=== PATIENT | female | born 1945 | race Caucasian/White ===

== ENCOUNTER 2021-11-30 19:32 | Emergency (ER) | payer MEDICARE, SELFPAY ==
[2021-11-30 19:44] VITALS: BP 110/84; PULSE 128; RESP 14; TEMP 36.9; O2SAT 99
[2021-11-30 19:58] VITALS: BP 110/84; PULSE 128; RESP 14; TEMP 36.9; O2SAT 99
--- NOTE | 2021-11-30 20:13 | ED.ANIMALBIT ---
HPI - Animal Bite General Chief Complaint: Animal Bite Stated Complaint: Dog bite on right arm Time Seen by Provider: 11/30/21 19:57 Source: patient and RN notes reviewed Mode of arrival: ambulatory Limitations: no limitations History of Present Illness HPI narrative: Patient presents today complaining of a dog bite to her right forearm that was sustained at 1800. This was not her dog. Electrical Development Engineer states patient was up-to-date on vaccines, but could not provide documentation. Patient sustained several wounds to her arm. She is not up-to-date on her tetanus vaccine, but declines it today. She did clean the wound prior to arrival. MD complaint: animal bite Related Data Home Medications Medication Instructions Recorded Confirmed amlodipine 10 mg PO DAILY 11/30/21 11/30/21 aspirin [Adult Low Dose Aspirin] 81 mg PO DAILY 11/30/21 11/30/21 atorvastatin 10 mg PO DAILY 11/30/21 11/30/21 irbesartan-hydrochlorothiazide 1 tablet PO DAILY 11/30/21 11/30/21 omeprazole 40 mg PO DAILY 11/30/21 11/30/21 Allergies Allergy/AdvReac Type Severity Reaction Status Date / Time amoxicillin [From Augmentin] AdvReac Nausea and Verified 11/30/21 19:56 Vomiting clavulanic acid AdvReac Nausea and Verified 11/30/21 19:56 [From Augmentin] Vomiting Review of Systems Review of Systems: CONSTITUTIONAL: Denies body aches, fever, chills, or sweats. EYES: Denies visual changes, redness, or discharge. ENT: Denies rhinorrhea, congestion, sore throat, or otalgia. CARDIOVASCULAR: Denies chest pain, palpitations, or edema. RESPIRATORY: Denies cough or dyspnea. GASTROINTESTINAL: Denies abdominal pain, nausea, vomiting, or diarrhea. GENITOURINARY: Denies dysuria or hematuria. SKIN: Denies rash, itching. + Dog bite MUSCULOSKELETAL: Denies back pain, joint pain, or myalgia. NEUROLOGIC: Denies headache, numbness, tingling, or weakness. PSYCH: Denies depression or anxiety. [facility] Past Medical History Medical History (Updated 11/30/21 @ 20:20 by Piper Francois, DIALYSIS CLINICAL MANAGER, ) GERD (gastroesophageal reflux disease) High cholesterol Hypertension Comments At time of signature, I have reviewed and agree with nursing past medical, surgical, social and family history unless otherwise noted. Please see nursing chart for further information. There is no relevant family history pertinent to the presenting complaint Exam Narrative: GENERAL: Well-appearing, well-nourished, and in no acute distress. HEAD: Normocephalic, atraumatic. EYES: EOMI. No redness or drainage. Conjunctivae normal. ENT: Mucous membranes pink and moist. NECK: Normal AROM. CHEST: No respiratory distress. EXTREMITIES: Normal range of motion. No edema. SKIN: Warm, dry, no rash. Capillary refill normal. Normal skin turgor. Right forearm: 2.5 cm x 2.5 cm area with full skin avulsion of the superficial skin layers to the dorsum of the wrist. V shaped flap laceration measuring 0.5 cm to the proximal forearm, tiny superficial flap skin tear to the dorsum of the base of the fourth finger, tiny superficial puncture wound to the distal ulna. NEURO: No focal deficits. Alert and oriented x3. Gait steady. PSYCH: Normal affect. No signs of depression or anxiety. Course Course Emergency Course: Declines tetanus vaccine at this time. Level of Care: [facility] Visit Vital Signs Vital signs: Vital Signs Temperature 98.4 F 11/30/21 19:44 Pulse Rate 128 H 11/30/21 19:44 Respiratory Rate 14 11/30/21 19:44 Blood Pressure 110/84 11/30/21 19:44 Pulse Oximetry 99 11/30/21 19:44 Temperature 98.4 F 11/30/21 19:58 Pulse Rate 128 H 11/30/21 19:58 Respiratory Rate 14 11/30/21 19:58 Blood Pressure 110/84 11/30/21 19:58 Pulse Oximetry 99 11/30/21 19:58 Reviewed. Pt has been instructed to follow up with her PCP regarding her elevated blood pressure today. Procedures Laceration Laceration 1: Date: 11/30/21 Time: 20:10 Site: upper extremity (Rig
== END 2021-11-30 20:21 | disposition home or self-care (01) ==
PROVIDERS: Emergency Provider Nurse Practitioner
DX: S61.551A Open bite of right wrist, initial encounter (principal); S51.811A Laceration without foreign body of right forearm, initial encounter; S61.214A Laceration without foreign body of right ring finger without damage to nail, initial encounter; S51.831A Puncture wound without foreign body of right forearm, initial encounter; W54.0XXA Bitten by dog, initial encounter; I10 Essential (primary) hypertension; K21.9 Gastro-esophageal reflux disease without esophagitis; E78.00 Pure hypercholesterolemia, unspecified
CPT/HCPCS: 99212; G0463

== ENCOUNTER 2021-12-03 14:34 | Emergency (ER) | payer MEDICARE, SELFPAY ==
[2021-12-03 14:42] VITALS: BP 135/57; PULSE 78; RESP 14; TEMP 37; O2SAT 100
--- NOTE | 2021-12-03 14:44 | ED.GENADULT ---
HPI - General Adult General Chief complaint: Animal Bite Stated complaint: Dog Bite Time Seen by Provider: 12/03/21 14:48 Source: patient Mode of arrival: ambulatory Limitations: no limitations History of Present Illness HPI narrative: 76 y/o female presented for Tetanus vaccination after sustaining dog bite 72 hours ago. States she declined the shot when she was seen in the [facility] the day of injury. No complaints. Related Data Home Medications Medication Instructions Recorded Confirmed amlodipine 10 mg PO DAILY 11/30/21 12/03/21 aspirin [Adult Low Dose Aspirin] 81 mg PO DAILY 11/30/21 12/03/21 atorvastatin 10 mg PO DAILY 11/30/21 12/03/21 irbesartan-hydrochlorothiazide 1 tablet PO DAILY 11/30/21 12/03/21 omeprazole 40 mg PO DAILY 11/30/21 12/03/21 Allergies Allergy/AdvReac Type Severity Reaction Status Date / Time amoxicillin [From Augmentin] AdvReac Nausea and Verified 11/30/21 19:56 Vomiting clavulanic acid AdvReac Nausea and Verified 11/30/21 19:56 [From Augmentin] Vomiting Review of Systems Review of Systems: CONSTITUTIONAL: Denies body aches, fever, chills, or sweats. EYES: Denies visual changes, redness, or discharge. ENT: Denies rhinorrhea, congestion, sore throat, or otalgia. CARDIOVASCULAR: Denies chest pain, palpitations, or edema. RESPIRATORY: Denies cough or dyspnea. GASTROINTESTINAL: Denies abdominal pain, nausea, vomiting, or diarrhea. GENITOURINARY: Denies dysuria or hematuria. SKIN: Denies rash, itching MUSCULOSKELETAL: Denies back pain, joint pain, or myalgia. NEUROLOGIC: Denies headache, numbness, tingling, or weakness. PSYCH: Denies depression or anxiety. All systems reviewed & are unremarkable except as noted in HPI and below [facility] Past Medical History Medical History (Updated 12/03/21 @ 14:54 by Chandrika Broussard APRN) GERD (gastroesophageal reflux disease) High cholesterol Hypertension Comments At time of signature, I have reviewed and agree with nursing past medical, surgical, social and family history unless otherwise noted. Please see nursing chart for further information. There is no relevant family history pertinent to the presenting complaint Exam Narrative: GENERAL: Well-appearing HEAD: Normocephalic, atraumatic. EYES: EOMI. ENT: Mucous membranes pink and moist. NECK: Normal AROM. Supple. CHEST: No respiratory distress. Clear to auscultation. HEART: Regular rate and rhythm. No murmur appreciated. Normal peripheral pulses. ABDOMEN: Soft, nontender, nondistended, normal active bowel sounds. MUSCULOSKELETAL: No bony tenderness. EXTREMITIES: Normal range of motion. No edema. SKIN: Dog bite site to right upper forearm V-shaped flap with steri strip in place; right dorsal wrist with avulsion, no s/s infection. Warm, dry, no rash. Capillary refill normal. Normal skin turgor. NEURO: No focal deficits. Alert and oriented x3. Gait steady. PSYCH: Normal affect. No signs of depression or anxiety. Course Course Emergency Course: Patient is aware of diagnosis, understands and agrees to treatment plan. Anticipatory guidance given. Patient agrees to follow-up as directed and is aware of reasons to seek care at the emergency department. Portions of this record may have been created with voice recognition software Level of Care: [facility] Visit Vital Signs Vital signs: Vital Signs Temperature 98.6 F 12/03/21 14:42 Pulse Rate 78 12/03/21 14:42 Respiratory Rate 14 12/03/21 14:42 Blood Pressure 135/57 L 12/03/21 14:42 Pulse Oximetry 100 12/03/21 14:42 Temperature 98.6 F 12/03/21 14:42 Pulse Rate 78 12/03/21 14:42 Respiratory Rate 14 12/03/21 14:42 Blood Pressure 135/57 L 12/03/21 14:42 Pulse Oximetry 100 12/03/21 14:42 Medical Decision Making [facility] Narrative Medical decision making narrative: Pt presented only for tetanus after dog bite 3 days ago. Dressing to right dorsal wrist removed, skin avulsion site appears h
[2021-12-03] MEDS: TETANUS,DIPHTHERIA,AC PERTUSSIS ADULT (0.5 ML) BOOSTRIX IM (14:55)
== END 2021-12-03 15:04 | disposition home or self-care (01) ==
PROVIDERS: Emergency Provider Nurse Practitioner Family
DX: Z23 Encounter for immunization (principal); K21.9 Gastro-esophageal reflux disease without esophagitis; E78.00 Pure hypercholesterolemia, unspecified; I10 Essential (primary) hypertension
CPT/HCPCS: 90471; 90715; 99212; G0463

== ENCOUNTER 2022-10-01 11:37 | Emergency (ER) | payer MEDICARE, SELFPAY ==
[2022-10-01 11:45] VITALS: BP 135/61; PULSE 85; RESP 14; TEMP 36.7; O2SAT 100
[2022-10-01 11:58] VITALS: BP 135/61; PULSE 85; RESP 14; TEMP 36.7; O2SAT 100
--- NOTE | 2022-10-01 12:02 | ED.WOUNDLAC ---
HPI - Wound/Laceration General Chief Complaint: Wound/Laceration Stated Complaint: Scratch to right ankle; swelling to foot Time Seen by Provider: 10/01/22 11:56 Source: patient and RN notes reviewed Mode of arrival: ambulatory Limitations: dementia History of Present Illness HPI narrative: 76-year-old female presents concern for redness, swelling, tenderness, scabs to her right ankle. She is not sure how she got the scabs, she may have scratched the ankle in her sleep. She reports the area has become more red, swollen. Reports swelling is moving to her foot. Related Data Home Medications Medication Instructions Recorded Confirmed amlodipine 10 mg tablet 10 mg PO DAILY 11/30/21 10/01/22 atorvastatin 10 mg tablet 10 mg PO DAILY 11/30/21 10/01/22 irbesartan 300 1 tablet PO DAILY 11/30/21 10/01/22 mg-hydrochlorothiazide 12.5 mg tablet omeprazole 40 mg capsule,delayed 40 mg PO DAILY 11/30/21 10/01/22 release latanoprost 0.005 % eye drops, 1 drp EACH EYE QPM 10/01/22 10/01/22 emulsion Allergies Allergy/AdvReac Type Severity Reaction Status Date / Time amoxicillin [From Augmentin] AdvReac Nausea and Verified 10/01/22 11:57 Vomiting clavulanic acid AdvReac Nausea and Verified 10/01/22 11:57 [From Augmentin] Vomiting MYCINS Allergy Unknown Uncoded 10/01/22 11:57 Review of Systems Review of Systems: CONSTITUTIONAL: Denies malaise, chills, sweats, or fever. EYES: Denies redness, or discharge. ENT: Denies rhinorrhea, congestion, swollen lips, swollen tongue CARDIOVASCULAR: Denies chest pain, palpitations, or edema. RESPIRATORY: Denies cough or dyspnea. GASTROINTESTINAL: Denies abdominal pain, nausea, vomiting SKIN: Reports redness, swelling, tenderness with scabbing to the right ankle. Denies purulent drainage, vesicles, bullae, numbness, pain beyond proportion MUSCULOSKELETAL: Denies joint pain or myalgia. NEUROLOGIC: Denies headache. All systems reviewed & are unremarkable except as noted in HPI and below PMFSH Past Medical History Medical History (Updated 10/01/22 @ 12:04 by Mirian Paez NP) GERD (gastroesophageal reflux disease) High cholesterol Hypertension Comments At time of signature, agree with nursing past medical, surgical, social and family history. There is no relevant family history pertinent to the presenting complaint Exam Narrative: GENERAL: Well-appearing, well-nourished, and in no acute distress. HEAD: Normocephalic, atraumatic. EYES: PERRLA, conjunctivae clear ENT: Mucous membranes moist. NECK: Supple. No lymphadenopathy CHEST: Clear to auscultation. No respiratory distress. HEART: Regular rate and rhythm. SKIN: Warm, dry. Scabs surrounded by mild Erythema, induration, tenderness, warmth with sharp margins noted right posterior ankle entire area approximately 7 cm x 4 cm. No vesicles, bullae, necrosis, ecchymosis, crepitus noted. NEURO: Alert and oriented x3. PSYCH: Normal mood and affect Course Course Emergency Course: Patient is aware of diagnosis, understands and agrees to treatment plan. Anticipatory guidance given. Patient agrees to follow-up as directed and is aware of reasons to seek care at the emergency department. Portions of this record may have been created with voice recognition software Level of Care: [facility] Visit Vital Signs Vital signs: Vital Signs Temperature 98.1 F 10/01/22 11:45 Pulse Rate 85 10/01/22 11:45 Respiratory Rate 14 10/01/22 11:45 Blood Pressure 135/61 10/01/22 11:45 Pulse Oximetry 100 10/01/22 11:45 Oxygen Delivery Room Air 10/01/22 11:45 Temperature 98.1 F 10/01/22 11:58 Pulse Rate 85 10/01/22 11:58 Respiratory Rate 14 10/01/22 11:58 Blood Pressure 135/61 10/01/22 11:58 Pulse Oximetry 100 10/01/22 11:58 Oxygen Delivery Room Air 10/01/22 11:58 Reviewed. MDM - Wound/Laceration MDM Narrative Medical decision making narrative: Does not appear at this time to be eryt
== END 2022-10-01 12:15 | disposition home or self-care (01) ==
PROVIDERS: Emergency Provider Nurse Practitioner
DX: L03.115 Cellulitis of right lower limb (principal); K21.9 Gastro-esophageal reflux disease without esophagitis; E78.00 Pure hypercholesterolemia, unspecified; I10 Essential (primary) hypertension
CPT/HCPCS: 99213; G0463

== ENCOUNTER 2023-09-01 09:45 | Emergency (ER) | payer MEDICARE, SELFPAY ==
[2023-09-01 09:51] VITALS: BP 131/64; PULSE 94; RESP 16; TEMP 36.6; O2SAT 96
--- NOTE | 2023-09-01 09:52 | ED.URI ---
HPI - URI/Sore Throat General Chief Complaint: Upper Respiratory Infection Stated Complaint: cough/cold Time Seen by Provider: 09/01/23 10:00 Source: patient Mode of arrival: ambulatory Limitations: no limitations History of Present Illness HPI Narrative: Patient is a 77-year-old female who presents with 1 week of dry cough. Worsening at night. Also reports mild congestion and sore throat from cough. Denies any fever, chills, nausea, vomiting, diarrhea. Reports family has had bronchitis in strep throat. Related Data Home Medications Medication Instructions Recorded Confirmed amlodipine 10 mg tablet 10 mg PO DAILY 11/30/21 10/01/22 atorvastatin 10 mg tablet 10 mg PO DAILY 11/30/21 10/01/22 irbesartan 300 1 tablet PO DAILY 11/30/21 10/01/22 mg-hydrochlorothiazide 12.5 mg tablet omeprazole 40 mg capsule,delayed 40 mg PO DAILY 11/30/21 10/01/22 release latanoprost 0.005 % eye drops, 1 drp EACH EYE QPM 10/01/22 10/01/22 emulsion Allergies Allergy/AdvReac Type Severity Reaction Status Date / Time amoxicillin [From Augmentin] AdvReac Nausea and Verified 09/01/23 09:56 Vomiting clavulanic acid AdvReac Nausea and Verified 09/01/23 09:56 [From Augmentin] Vomiting MYCINS Allergy Unknown Uncoded 09/01/23 09:56 Review of Systems Review of Systems: All systems reviewed & are unremarkable except as noted in HPI and below Constitutional: Constitutional: Denies body ache(s), Denies chills, Denies fatigue, Denies fever(s), Denies headache(s), Denies malaise and Denies weakness Eyes: Eyes: Denies blurry vision, Denies itchy eyes and Denies loss of vision ENT: Denies otalgia, Denies headache(s), Reports nasal congestion, Denies sinus pain and Reports sore throat Cardiovascular: Cardiovascular: Denies chest pain, Denies irregular heart rhythm and Denies dyspnea Respiratory: Respiratory: Reports cough and Denies dyspnea Gastrointestinal: Gastrointestinal: Denies abdominal pain, Denies diarrhea, Denies nausea and Denies vomiting Musculoskeletal: Musculoskeletal: Denies back pain, Denies myalgias and Denies arthralgias Integumentary/Breasts: Skin/Breast: Denies pruritus and Denies rash Neurologic: Denies headache(s), Denies loss of vision and Denies weakness Psychiatric: Psychiatric: Reports no additional psychiatric complaints Endocrine: Endocrine: Denies fatigue Allergic/Immunologic: Allergic/Immunologic: Denies itchy eyes PMFSH Past Medical History Medical History GERD (gastroesophageal reflux disease) High cholesterol Hypertension Comments At time of signature, agree with nursing past medical, surgical, social and family history. There is no relevant family history pertinent to the presenting complaint. Exam Const: General: cooperative, healthy appearing, comfortable, no acute distress and well nourished Nutritional Appearance: well nourished Orientation/consciousness: patient oriented x3 Limitations: no limitations HENMT: Head: normal to inspection, normocephalic and atraumatic Ears: hearing grossly normal bilaterally, external ears normal, TM's normal bilaterally, EAC's normal and no periauricular adenopathy Face/Nose/Sinus: Normal external nose present, Abnormal mucous membranes and turbinates present erythematous bilateral and diffuse, normal facial exam, sinuses nontender and face symmetric Face and sinus: normal facial exam, sinuses nontender and face symmetric Mouth: Yes Normal oral and palatal mucosa present, Yes lip normal, Yes tongue normal, Yes Normal salivary glands and ducts present, Yes oropharynx normal and Yes moist mucous membranes Teeth and gingiva: dentition normal Throat: posterior oropharynx normal, tonsils normal and uvula midline Eyes: General: appearance normal, both eyes and all related structures Alignment and Position: alignment normal and position normal Periorbital: periorbital findings normal Eyelids: e
[2023-09-01 09:58] VITALS: BP 131/64; PULSE 94; RESP 16; TEMP 36.6; O2SAT 96
== END 2023-09-01 10:31 | disposition home or self-care (01) ==
PROVIDERS: Emergency Provider Nurse Practitioner Family; PCP Internal Medicine
DX: J06.9 Acute upper respiratory infection, unspecified (principal); I10 Essential (primary) hypertension
CPT/HCPCS: 99213; G0463

== ENCOUNTER 2023-12-16 09:39 | Emergency (ER) | payer MEDICARE, SELFPAY ==
--- NOTE | 2023-12-16 09:44 | ED.FEMALEGU ---
HPI - Female Genitourinary General Chief complaint: Urogenital-Female Stated complaint: Urinary Problem Time Seen by Provider: 12/16/23 10:17 Source: patient, RN notes reviewed and old records reviewed Mode of arrival: ambulatory Limitations: no limitations History of Present Illness HPI Narrative: 78-year-old female presents to the [facility] with complaints of urinary symptoms. Patient reports that for 1 week she has had burning, urgency and frequency. Patient reports history UTIs. Last UTI was April of 2023 Patient denies any fevers, nausea, vomiting, diarrhea, abdominal pain. Denies back pain Onset (ago): week(s) (1) Related Data Home Medications Medication Instructions Recorded Confirmed amlodipine 10 mg tablet 10 mg PO DAILY 11/30/21 12/16/23 atorvastatin 10 mg tablet 10 mg PO DAILY 11/30/21 12/16/23 irbesartan 300 1 tablet PO DAILY 11/30/21 12/16/23 mg-hydrochlorothiazide 12.5 mg tablet omeprazole 40 mg capsule,delayed 40 mg PO DAILY 11/30/21 12/16/23 release latanoprost 0.005 % eye drops, 1 drp EACH EYE QPM 10/01/22 12/16/23 emulsion Allergies Allergy/AdvReac Type Severity Reaction Status Date / Time amoxicillin [From Augmentin] AdvReac Nausea and Verified 12/16/23 09:57 Vomiting clavulanic acid AdvReac Nausea and Verified 12/16/23 09:57 [From Augmentin] Vomiting MYCINS Allergy Unknown Uncoded 09/01/23 09:56 Review of Systems Review of Systems: All systems reviewed & are unremarkable except as noted in HPI and below Constitutional: Constitutional: Reports no additional constitutional complaints Eyes: Eyes: Reports no additional eye complaints ENT: Reports system reviewed and no additional complaints, except as documented Cardiovascular: Cardiovascular: Reports no additional cardiovascular complaints, Denies chest pain and Denies dyspnea Respiratory: Respiratory: Reports no additional respiratory complaints, Denies chest congestion, Denies cough and Denies dyspnea Gastrointestinal: Gastrointestinal: Denies abdominal pain, Denies nausea and Denies vomiting Genitourinary: Genitourinary: Reports as per HPI and Reports dysuria Musculoskeletal: Musculoskeletal: Reports no additional musculoskeletal complaints Integumentary/Breasts: Skin/Breast: Reports system reviewed and no additional complaints, except as docu Neurologic: Reports system reviewed and no additional complaints, except as documented Psychiatric: Psychiatric: Reports no additional psychiatric complaints Allergic/Immunologic: Allergic/Immunologic: Reports no additional allergic/immunologic complaints PMF Past Medical History Medical History GERD (gastroesophageal reflux disease) High cholesterol Hypertension Surgical History Surgical History (Updated 12/16/23 @ 11:47 by Mirian Aguilera APRN) History of hysterectomy Comments At the time of my signature, I reviewed and agree with the nursing past medical, surgical, social, and family history. There is no relevant family history pertinent to the patient complaint. Exam Const: General: cooperative, healthy appearing, comfortable, no acute distress, well developed, alert and well nourished Nutritional Appearance: well nourished Orientation/consciousness: patient oriented x3 Limitations: no limitations HENMT: Head: normal to inspection Ears: hearing grossly normal bilaterally and external ears normal Face/Nose/Sinus: Normal external nose present, Normal nares present, Normal nasal mucous membranes and turbinates present, normal facial exam and face symmetric Face and sinus: normal facial exam and face symmetric Mouth: Yes lip normal and Yes moist mucous membranes Eyes: General: appearance normal, both eyes and all related structures Alignment and Position: alignment normal Periorbital: periorbital findings normal Pupils: Equal, round and reactive pupils present EOM: EOMs intact bilaterally Neck:
[2023-12-16 09:54] VITALS: BP 146/68; PULSE 78; RESP 18; TEMP 36.4; O2SAT 100
== END 2023-12-16 10:37 | disposition home or self-care (01) ==
PROVIDERS: Emergency Provider Nurse Practitioner; PCP Internal Medicine
DX: N30.01 Acute cystitis with hematuria (principal); B96.89 Other specified bacterial agents as the cause of diseases classified elsewhere; K21.9 Gastro-esophageal reflux disease without esophagitis; E78.00 Pure hypercholesterolemia, unspecified; I10 Essential (primary) hypertension
CPT/HCPCS: 81003; 87077; 87086; 87088; 87186; 99213; G0463

== ENCOUNTER 2024-01-06 10:53 | Emergency (ER) | payer MEDICARE, SELFPAY ==
[2024-01-06 11:02] VITALS: BP 151/70; PULSE 84; RESP 16; TEMP 36.5; O2SAT 100
--- NOTE | 2024-01-06 11:05 | ED.DIZZY ---
HPI - Dizziness General Chief Complaint: Dizziness Stated Complaint: dizzy spells Time Seen by Provider: 01/06/24 11:05 Source: patient and RN notes reviewed Mode of arrival: ambulatory Limitations: no limitations History of Present Illness HPI Narrative: 78 y/o female with hx HTN presented for c/o intermittent dizziness episodes for about one month. Pt was prescribed Xanax for anxiety per PCP a few days after the first episode, and pt has started to take the med daily. Pt did not take Xanax today. States today's episode of dizziness occurred while at breakfast with family, stating it was a brief off balance sensation. Denies CP, palpitations, sob, fatigue, nausea, vomiting, diaphoresis, edema. Related Data Home Medications Medication Instructions Recorded Confirmed amlodipine 10 mg tablet 10 mg PO DAILY 11/30/21 12/16/23 atorvastatin 10 mg tablet 10 mg PO DAILY 11/30/21 12/16/23 irbesartan 300 1 tablet PO DAILY 11/30/21 12/16/23 mg-hydrochlorothiazide 12.5 mg tablet omeprazole 40 mg capsule,delayed 40 mg PO DAILY 11/30/21 12/16/23 release latanoprost 0.005 % eye drops, 1 drp EACH EYE QPM 10/01/22 12/16/23 emulsion Allergies Allergy/AdvReac Type Severity Reaction Status Date / Time amoxicillin [From Augmentin] AdvReac Nausea and Verified 12/16/23 09:57 Vomiting clavulanic acid AdvReac Nausea and Verified 12/16/23 09:57 [From Augmentin] Vomiting MYCINS Allergy Unknown Uncoded 09/01/23 09:56 Review of Systems Review of Systems: CONSTITUTIONAL: Denies body aches, fever, chills, or sweats. EYES: Denies visual changes, redness, or discharge. ENT: Denies rhinorrhea, congestion, sore throat, or otalgia. CARDIOVASCULAR: Denies chest pain, palpitations, or edema. RESPIRATORY: Denies cough or dyspnea. GASTROINTESTINAL: Denies abdominal pain, nausea, vomiting, or diarrhea. SKIN: Denies rash, itching, or wounds. MUSCULOSKELETAL: Denies back pain, joint pain, or myalgia. NEUROLOGIC: Endorses dizziness denies numbness, tingling, or weakness, headache All systems reviewed & are unremarkable except as noted in HPI and below PMFSH Past Medical History Medical History GERD (gastroesophageal reflux disease) High cholesterol Hypertension Surgical History Surgical History History of hysterectomy Comments At time of signature, I have reviewed and agree with nursing past medical, surgical, social and family history unless otherwise noted. Please see nursing chart for further information. There is no relevant family history pertinent to the presenting complaint Exam Narrative: GENERAL: Well-appearing, well-nourished HEAD: Normocephalic, atraumatic. EYES: PERRLA, EOMI. ENT: Mucous membranes pink and moist. No rhinorrhea. TMs normal bilaterally. NECK: Normal AROM. Supple. No lymphadenopathy. CHEST: No respiratory distress. Clear to auscultation. HEART: Regular rate and rhythm. No murmur appreciated. Normal peripheral pulses. ABDOMEN: Soft, nontender, nondistended, normal active bowel sounds. EXTREMITIES: Normal range of motion. No edema. SKIN: Warm, dry, no rash. Capillary refill normal. Normal skin turgor. NEURO:No focal deficits. Alert and oriented x3. Finger to nose intact bilaterally. EOMs intact without nystagmus. No facial droop/asymmetry noted bilaterally. Grimace intact. Intact sensation in face. Hearing intact bilaterally. Shoulder shrug intact. Strength 5/5 bilateral upper extremities. Ambulatory exam with a normal based, steady gait. PSYCH: Normal affect. Appears anxious. Course Course Emergency Course: Patient is aware of diagnosis, understands and agrees to treatment plan. Anticipatory guidance given. Patient agrees to follow-up as directed and is aware of reasons to seek care at the emergency department. Portions of this record may have been created with v
== END 2024-01-06 11:51 | disposition home or self-care (01) ==
PROVIDERS: Emergency Provider Nurse Practitioner Family; PCP Internal Medicine
DX: R42 Dizziness and giddiness (principal); I10 Essential (primary) hypertension; K21.9 Gastro-esophageal reflux disease without esophagitis; E78.00 Pure hypercholesterolemia, unspecified; F41.9 Anxiety disorder, unspecified
CPT/HCPCS: 99213; G0463